=== PATIENT | female | born 1945 | race Caucasian/White ===

== ENCOUNTER 2018-10-14 23:57 | Emergency (ER) | payer MEDICARE ==
[~2018-10-14] VITALS: Ht 162.6 cm; Wt 65.1 kg
[~2018-10-14 23:57] MED LIST: FLUT1DIS3 INH; HYDR25TA6 PO; LEVO25TA2 PO; SIMV5TAB14 PO
[2018-10-14 23:59] VITALS: BP 165/85
== END 2018-10-15 01:15 | disposition home or self-care (01) ==
LOC: ED 10-15 00:17
DX: T88.1XXA Other complications following immunization, not elsewhere classified, initial encounter (principal); L27.0 Generalized skin eruption due to drugs and medicaments taken internally; M79.601 Pain in right arm; M79.89 Other specified soft tissue disorders; E78.00 Pure hypercholesterolemia, unspecified; E03.9 Hypothyroidism, unspecified; J45.909 Unspecified asthma, uncomplicated; I10 Essential (primary) hypertension; Z90.89 Acquired absence of other organs
CPT/HCPCS: 99281